=== PATIENT | male | born 1980 | race Caucasian/White ===

== ENCOUNTER 2021-03-25 17:16 | Emergency (ER) | payer MEDICARE, MEDICAID ==
[~2021-03-25] VITALS: Ht 154.9 cm; Wt 73.4 kg
[~2021-03-25 17:16] MED LIST: LOPE-144 PO
[2021-03-25 17:25] VITALS: BP 109/80
[2021-03-25] MEDS ORDERED: PRED20TA PO (18:13)
[2021-03-25] MEDS ORDERED: TETanus/Pertussis (Acell)/Diphther VAC/PF (Tdap-Adult) 0.5ml syringe IMVAC ONE (18:15)
[2021-03-25] MEDS ORDERED: predniSONE 20 mg tablet PO ONE (18:15)
[2021-03-25] MEDS ORDERED: diphenhydrAMINE 25mg capsule PO ONE (18:15)
[2021-03-25] MEDS ORDERED: PRED15SO23 PO (19:25)
== END 2021-03-25 19:28 | disposition home or self-care (01) ==
LOC: ER 17:16
DX: S90.466A Insect bite (nonvenomous), unspecified lesser toe(s), initial encounter (principal); Q90.9 Down syndrome, unspecified; Z79.899 Other long term (current) drug therapy; W57.XXXA Bitten or stung by nonvenomous insect and other nonvenomous arthropods, initial encounter; Y93.89 Activity, other specified; Y92.89 Other specified places as the place of occurrence of the external cause; Y99.8 Other external cause status
CPT/HCPCS: 90471; 90715; 99283; J7512; Q0163

== ENCOUNTER 2022-03-10 18:40 | Emergency (ER) | payer MEDICARE, MEDICAID ==
[~2022-03-10] VITALS: Ht 157.5 cm; Wt 71.8 kg
[~2022-03-10 18:40] MED LIST changes: +PRED15SO23 PO
[2022-03-10 18:43] VITALS: BP 125/72
[2022-03-10 21:05] LABS: BASOPHILS % (AUTO) 0.6 % (0-1); EOSINOPHILS % (AUTO) 0.1 % (0-6); HEMATOCRIT 46.3 % (42.0-52.0); HEMOGLOBIN 15.7 g/dl (14.0-17.9); LYMPHOCYTES # (AUTO) 0.9 X10'3 (1.1-4.8); LYMPHOCYTES % (AUTO) 11.5 % (21-51); MEAN CORPUSCULAR HEMOGLOBIN 32.4 PG (27.0-31.0); MEAN CORPUSCULAR HGB CONC 33.8 g/dL (33.0-36.5); MEAN CORPUSCULAR VOLUME 95.8 FL (78-98); MEAN PLATELET VOLUME 8.7 FL (7.4-10.4); MONOCYTES # (AUTO) 0.6 X10'3 (0-0.9); MONOCYTES % (AUTO) 7.3 % (2-12); NEUTROPHILS # (AUTO) 6.1 X10'3 (1.8-7.7); NEUTROPHILS % (AUTO) 80.5 % (42-75); PLATELET COUNT 201 X10'3 (140-440); RED BLOOD COUNT 4.83 X10'6 (4.70-6.10); WHITE BLOOD COUNT 7.6 X10'3 (4.5-11.0)
[2022-03-10 21:06] LABS: ALANINE AMINOTRANSFERASE 30 U/L (12-78); ALBUMIN 3.6 G/DL (3.4-5.0); ALBUMIN/GLOBULIN RATIO 0.9 (1.1-1.5); ALKALINE PHOSPHATASE 108 IU/L (46-116); ANION GAP 9 (8-16); ASPARTATE AMINO TRANSFERASE 20 U/L (10-37); BILIRUBIN,TOTAL 0.3 MG/DL (0.1-1.0); BLOOD UREA NITROGEN 12 MG/DL (7-18); BUN/CREATININE RATIO 8.4 (5.4-32.0); CHLORIDE 103 MMOL/L (99-107); CREATININE 1.43 MG/DL (0.60-1.10); GLUCOSE 91 MG/DL (70-104); POTASSIUM 4.1 MMOL/L (3.5-5.1); SODIUM 137 MMOL/L (135-145); TOTAL CARBON DIOXIDE 25.2 MMOL/L (24-32); TOTAL PROTEIN 7.6 G/DL (6.4-8.2); eGFR 54 ML/MIN
== END 2022-03-10 21:31 | disposition home or self-care (01) ==
LOC: ER 18:40
DX: M79.601 Pain in right arm (principal)
CPT/HCPCS: 36415; 80053; 85025; 93971; 99284

== ENCOUNTER 2022-03-12 20:56 | Emergency (ER) | payer MEDICARE, MEDICAID | END 2022-03-13 07:57 | disposition left against medical advice (07) | LOC: ER 20:56 | DX: Z00.8 Encounter for other general examination (principal); Z53.21 Procedure and treatment not carried out due to patient leaving prior to being seen by health care provider ==

== ENCOUNTER 2022-11-15 11:41 | Emergency (ER) | payer MEDICARE, MEDICAID ==
[~2022-11-15] VITALS: Ht 154.9 cm; Wt 73.6 kg
[2022-11-15 12:10] VITALS: BP 124/78
[2022-11-15] MEDS ORDERED: LIDOcaine 5% patch TP STA (14:18)
[2022-11-15] MEDS ORDERED: LIDO700A32 TOP (15:14)
== END 2022-11-15 15:27 | disposition home or self-care (01) ==
LOC: ER 11:43
DX: M25.511 Pain in right shoulder (principal)
CPT/HCPCS: 73030; 99284